=== PATIENT | male | born 1955 | race Caucasian/White ===

== ENCOUNTER 2017-05-29 11:09 | Emergency (ER) | payer BC, OTHER ==
--- NOTE | 2017-05-29 13:39 | EDM.PDOC ---
ED HPI GENERAL MEDICAL PROBLEM - General Chief Complaint: ENT Problem Stated Complaint: ABSCESS TOOTH Time Seen by Provider: 05/29/17 13:20 Source of Information: Reports: Patient History Limitations: Reports: No Limitations - History of Present Illness INITIAL COMMENTS - FREE TEXT/NARRATIVE: HISTORY AND PHYSICAL: History of present illness: [Pt comes to the ER complaining of dental pain. Has abscessed teeth to L lower jaw. Is scheduled with a DDS on 06/03/17. Has had swelling and tenderness to left lower jaw. He has not had fever or chills but admits to having a mild frontal headache on the left side. Has been taking Aleve which takes the edge off the pain but certainly doesn't take it away. He follows regularly with Dr. Lala. Had an LA in 2013. ] Review of systems: As per history of present illness and below otherwise all systems reviewed and negative. Past medical history: As per history of present illness and as reviewed below otherwise noncontributory. Surgical history: As per history of present illness and as reviewed below otherwise noncontributory. Social history: No reported history of drug or alcohol abuse. Family history: As per history of present illness and as reviewed below otherwise noncontributory. Physical exam: HEENT: Atraumatic, normocephalic. Tooth #32 is broken off at the gumline. Gums are swollen and erythematous. No drainage. Tooth #29 is decayed cracked and broken off. Surrounding tissue is erythematous and swollen and tender. Oral mucous membranes are pink and moist. Throat is clear. Neck supple, no lymphadenopathy. Lungs: Clear to auscultation, breath sounds equal bilaterally. Heart: S1S2, regular. Neuro: Awake, alert, oriented. Motor and sensory unremarkable throughout. Exam nonfocal. Therapeutics: [Dental balls are given] Impression: [Dental pain] Plan: [Patient is given prescriptions for Amoxicillin 500 mg #32 sig 2 by mouth now, then 1 by mouth 3 times a day for 10 days 0 refills, hydrocodone 5/325 mg #10 sig 1 by mouth every 8 hours as needed for pain 0 refills, and is given a supply of dental balls. Urged to follow-up with dentist as scheduled on . He is in agreement with today's plan. All questions are answered and concerns are addressed.] Definitive disposition and diagnosis as appropriate pending reevaluation and review of above. Oral/Mouth Pain Score (Numeric/FACES): 6 - Related Data Allergies Allergy/AdvReac Type Severity Reaction Status Date / Time furosemide [From Lasix] Allergy Hives Verified 05/29/17 12:34 Home Meds: Home Meds Aspirin [Halfprin] 81 mg PO DAILY 11/09/13 [History] Metoprolol Tartrate 50 mg PO BID 11/09/13 [History] atorvaSTATin [Lipitor] 4 tab PO DAILY 03/06/15 [History] Folic Acid 1 tab PO DAILY 04/30/16 [History] Losartan Potassium 1 tab PO DAILY 04/30/16 [History] Methotrexate 5 tab PO ASDIRECTED 04/30/16 [History] Naproxen Sodium [Aleve] 2 tab PO Q12HR PRN 04/30/16 [History] riTUXimab [Rituxan] 1 vial IV ASDIRECTED 04/30/16 [History] Allopurinol [Zyloprim] 100 mg PO DAILY 05/29/17 [History] Ranitidine HCl [Zantac] 150 mg PO ASDIRECTED 05/29/17 [History] Past Medical History - Past Health History Medical/Surgical History: Denies Medical/Surgical History Cardiovascular History: Reports: Hypertension, LA Gastrointestinal History: Reports: GERD Other Musculoskeletal History: "muscle disease, remission 5 years" - Infectious Disease History 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 , Measles, Mumps - Past Surgical History Other HEENT Surgeries/Procedures: Laser surgery on both eyes GI Surgical History: Reports: Cholecystectomy, Colonoscopy, Other (See Below) Social & Family History - Family History Family Medical History: Noncontributory - Tobacco Use Smoking Status *Q: Never Smoker Years of Tobacco use: 30 Packs/Tins Daily: 1.5 Used Tobacco, but Quit: Yes Month Tobacco Last Used: jun 2012 Second Hand Smoke Exposure: No - Caffeine Use Caffeine Use: Reports: None Caffeine Use Comment: 1cup/day - Alcohol Use Days Per Week of Alcohol Use: 2 Number of Drinks Per Day: 6 Total Drinks Per Week: 12 - Recreational Drug Use Recreational Drug Use: No Drug Use in Last 12 Months: No ED ROS ENT - Review of Systems Review Of Systems: ROS reveals no pertinent complaints other than HPI. ED EXAM, ENT - Physical Exam Exam: See Below Course - Vital Signs Last Recorded V/S: Last Vital Signs Temp 97.4 F 05/29/17 14:00 Pulse 68 05/29/17 14:00 Resp 18 05/29/17 14:00 BP 155/70 H 05/29/17 14:00 Pulse Ox 95 05/29/17 14:00 - Orders/Labs/Meds Meds: Medications Discontinued Medications Generic Name Dose Route Start Last Admin Trade Name Nola PRN Reason Stop Dose Admin Benzocaine 2 each 05/29/17 13:41 05/29/17 13:52 Hurricaine One 20% MUCMEM 05/29/17 13:42 2 each ONETIME ONE Administration Lidocaine HCl 15 ml 05/29/17 13:41 05/29/17 13:52 Xylocaine 2% Viscous PO 05/29/17 13:42 15 ml ONETIME ONE Administration Departure - Departure Time of Disposition: 13:40 Disposition: Home, Self-Care 01 Condition: Good Clinical Impression: Pain, dental - Discharge Information Instructions: Dental Abscess, [id number] Referrals: PCP,None [Primary Care Provider] - Forms: ED Department Discharge Additional Instructions: The following information is given to patients seen in the emergency department who are being discharged to home. This information is to outline your options for follow-up care. We provide all patients seen in our emergency department with a follow-up referral. The need for follow-up, as well as the timing and circumstances, are variable depending upon the specifics of your emergency department visit. If you don't have a primary care physician on staff, we will provide you with a referral. We always advise you to contact your personal physician following an emergency department visit to inform them of the circumstance of the visit and for follow-up with them and/or the need for any referrals to a consulting specialist. The emergency department will also refer you to a specialist when appropriate. This referral assures that you have the opportunity for follow-up care with a specialist. All of these measure are taken in an effort to provide you with optimal care, which includes your follow-up. Under all circumstances we always encourage you to contact your private physician who remains a resource for coordinating your care. When calling for follow-up care, please make the office aware that this follow-up is from your recent emergency room visit. If for any reason you are refused follow-up, please contact the [facility] emergency department at and asked to speak to the emergency department charge nurse. LATRICE [facility] [address] [place] [id number] Follow-up with her local primary care provider or at the clinic listed above in 48-72 hours. Keep your appointment with your dentist. Use dental balls as needed. Continue Aleve twice daily, take antibiotic as prescribed. You may use the pain pills at bedtime as needed for moderate to severe pain. Return to ER as needed as discussed.
[2017-05-29] MEDS ORDERED: Lidocaine 2% Viscous Solution 15 ML Cup PO ONE (13:41)
[2017-05-29] MEDS ORDERED: Benzocaine 20% Topical Spray UD MUCMEM ONE (13:41)
[2017-05-29 16:01] VITALS: BP 155/70
== END 2017-05-29 14:00 | disposition home or self-care (01) ==
LOC: MW.ED 11:09
DX: K03.81 Cracked tooth (principal); K02.9 Dental caries, unspecified; I10 Essential (primary) hypertension; K21.9 Gastro-esophageal reflux disease without esophagitis; Z88.8 Allergy status to other drugs, medicaments and biological substances; Z79.82 Long term (current) use of aspirin; Z79.899 Other long term (current) drug therapy; Z87.891 Personal history of nicotine dependence
CPT/HCPCS: 99282; A9270